=== PATIENT | female | born 1980 | race African-American/Black ===

== ENCOUNTER 2020-04-17 21:56 | Emergency (ER) | payer OTHER, SELFPAY ==
[2020-04-17 22:02] VITALS: BP 130/78; PULSE 97; RESP 20; TEMP 37.2; O2SAT 97
--- NOTE | 2020-04-17 22:26 | ED.HA ---
HPI - Headache General Chief Complaint: Headache <Kirk Grimm PA-C - Last Filed: 04/17/20 22:30> Stated Complaint: Migraine BANKS <Kirk Grimm PA-C - Last Filed: 04/17/20 22:30> Time Seen by Provider: 04/17/20 22:26 <Kirk Grimm PA-C - Last Filed: 04/17/20 22:30> Source: patient <Kirk Grimm PA-C - Last Filed: 04/17/20 22:30> Mode of arrival: ambulatory <Kirk Grimm PA-C - Last Filed: 04/17/20 22:30> Limitations: no limitations <Kirk Grimm PA-C - Last Filed: 04/17/20 22:30> History of Present Illness HPI Narrative: Patient is a 39-year-old female who presents with 3 days duration of frontal headache with history of migraine headaches with similar occurrences in the past with some associated nausea denies any injury trauma or recent illness has tried [id number] medications with minimal improvement on arrival patient resting comfortably in the room in no distress has not been seen for this complaint <Kirk Grimm PA-C - Last Filed: 04/17/20 22:30> Related Data Allergies/Adverse Reactions: Allergies Allergy/AdvReac Type Severity Reaction Status Date / Time No Known Allergies Allergy Verified 04/17/20 22:04 <Kirk Grimm PA-C - Last Filed: 04/17/20 22:30> Review of Systems Review of Systems: All systems reviewed & are unremarkable except as noted in HPI and below <Kirk Grimm PA-C - Last Filed: 04/17/20 22:30> PMFSH Past Medical History Medical History: Medical History (Updated 04/18/20 @ 00:00 by Mark Navas) Anemia <Kirk Grimm PA-C - Last Filed: 04/17/20 22:30> Social History Social History: Social History (Updated 04/17/20 @ 22:28 by Kirk Grimm PA-C) Smoking status: Never smoker <Kirk Grimm PA-C - Last Filed: 04/17/20 22:30> Exam Narrative: Exam Narrative: GENERAL: Well-appearing, well-nourished, and in no acute distress. HEAD: Normocephalic, atraumatic. EYES: PERRLA and EOMI. ENT: Nares clear, no rhinorrhea or epistaxis. Mucous membranes moist. CHEST: Clear to auscultation. No respiratory distress. No wheezes rales or rhonchi HEART: Regular rate and rhythm. No murmur heard. EXTREMITIES: Normal range of motion. No edema. SKIN: Warm, dry, no rash. NEURO: No focal deficits. Alert and oriented x3. Cranial nerves II through XII grossly intact. Normal speech and gait PSYCH: Normal mood and affect. <Kirk Grimm PA-C - Last Filed: 04/17/20 22:30> Course Course Emergency Course: Patient in the room in no distress aware of case findings treatment plan and diagnosis agreeing to follow-up as directed or to return if symptoms worsen or concern <Kirk Grimm PA-C - Last Filed: 04/17/20 22:30> Vital Signs Vital signs: Vital Signs Temperature 98.9 F 04/17/20 22:02 Pulse Rate 97 04/17/20 22:02 Respiratory Rate 20 04/17/20 22:02 Blood Pressure 130/78 04/17/20 22:02 Pulse Oximetry 97 04/17/20 22:02 Temperature 98.9 F 04/17/20 22:02 Pulse Rate 78 04/17/20 23:25 Respiratory Rate 15 04/17/20 23:25 Blood Pressure 132/78 04/17/20 23:25 Pulse Oximetry 98 04/17/20 23:25 <RADHA Montague Last Filed: 04/17/20 22:30> Vital Signs Temperature 98.9 F 04/17/20 22:02 Pulse Rate 97 04/17/20 22:02 Respiratory Rate 20 04/17/20 22:02 Blood Pressure 130/78 04/17/20 22:02 Pulse Oximetry 97 04/17/20 22:02 Temperature 98.9 F 04/17/20 22:02 Pulse Rate 78 04/17/20 23:25 Respiratory Rate 15 04/17/20 23:25 Blood Pressure 132/78 04/17/20 23:25 Pulse Oximetry 98 04/17/20 23:25 <Nidhi Mayes MD - Last Filed: 04/20/20 03:01> MDM - Headache MDM Narrative Medical decision making narrative: Patients headache was not sudden or maximal in onset. There are o focal neurological deficits on exam. Subarachnoid hemorrhage is felt to be unlikey at this time. There is no history
[2020-04-17] MEDS: METOCLOPRAMIDE HCL INJ 10 MG/2 ML VIAL IV PUSH (22:36)
[2020-04-17] MEDS: diphenhydrAMINE HCl INJ 50 MG/ML VIAL 25 MG IV PUSH (22:36)
[2020-04-17] MEDS: KETOROLAC 30 MG/ML VIAL (*BKC) IV PUSH (22:36)
[2020-04-17] MEDS: FAMOTIDINE 20 MG/2 ML VIAL IV PUSH (22:36)
[2020-04-17] MEDS: SODIUM CHLORIDE 0.9% IV 1,000 ML 999 ML IV CONT (22:42)
[2020-04-17 23:25] VITALS: BP 132/78; PULSE 78; RESP 15; O2SAT 98
== END 2020-04-17 23:25 | disposition home or self-care (01) ==
PROVIDERS: Emergency Provider Emergency Medicine
DX: R51 Headache (principal)
CPT/HCPCS: 96361; 96374; 96375; 99284; J1200; J1885; J2060; J2765; J7030

== ENCOUNTER 2020-07-10 11:40 | Outpatient (CLI) | payer OTHER, SELFPAY ==
[2020-07-10 12:10] LABS: Basophils Percent Auto 0.7 % (0.2-1.2); Eosinophils Percent Auto 0.7 % (0-4.4); Hematocrit 29.5 % (37.0-47.0); Hemoglobin 8.3 g/dL (12.0-15.0); Immature Granulocyte Absolute 0.01 K/mm3 (0.00-0.031); Immature Granulocyte Percent A 0.3 % (0-0.5); Lymphocytes Absolute Auto 1.34 K/mm3 (0.9-3.2); Lymphocytes Percent Auto 44.4 % (18.3-44.2); Mean Corpuscular HGB Conc 28.1 g/dl (32-36); Mean Corpuscular Hemoglobin 17.5 pg (26-34); Mean Corpuscular Volume 62.4 fl (80-100); Mean Platelet Volume 8.5 fl (7.4-10.4); Monocytes Absolute Auto 0.2 K/mm3 (0.1-0.6); Monocytes Percent Auto 6.3 % (2.6-8.5); Neutrophils Absolute Auto 1.4 K/mm3 (1.3-6.7); Neutrophils Percent Auto 47.6 % (45.5-73.1); Platelet Count Result 356 k/mm3 (150-375); Red Blood Count 4.73 M/mm3 (4.2-5.4); Red Cell Distribution Width 18.5 % (11.5-14.5)
[2020-07-10 12:34] LABS: Anisocytosis 1+ (NORMAL); Hypochromasia 1+ (NORMAL); Platelet Estimate Adequate (Adequate)
[2020-07-10 12:41] LABS: Iron 14 ug/dL (37-170)
[2020-07-10 12:51] LABS: Percent Iron Saturation 3 % (20-50)
[2020-07-10 13:26] LABS: Folic Acid 5.2 ng/mL (2.76->20)
== END 2020-07-10 11:41 | disposition home or self-care (01) ==
PROVIDERS: PCP Physician Assistant; Visit Provider Physician Assistant
DX: D64.9 Anemia, unspecified (principal)
CPT/HCPCS: 36415; 82607; 82746; 83540; 83550; 85025

== ENCOUNTER 2020-12-19 06:57 | Emergency (ER) | payer OTHER, SELFPAY ==
[2020-12-19 06:59] VITALS: BP 149/79; PULSE 87; RESP 16; TEMP 37.1; O2SAT 99
--- NOTE | 2020-12-19 07:34 | ED.HA ---
HPI - Headache General Chief Complaint: Headache Stated Complaint: headache Time Seen by Provider: 12/19/20 07:10 Source: patient Mode of arrival: ambulatory Limitations: no limitations History of Present Illness HPI Narrative: This is a 40 year old female who presents for evaluation of a headache. She describes a throbbing frontal headache that radiates to her neck. Her headache started on . She has been taking ibuprofen and she states it was giving her relief until this morning. Her last dose of ibuprofen was 10 hours ago. She reports associated nausea but denies visual changes, vomiting or fever. She has a history of headaches and she states this headache is similar to previous episodes. She reports having previous neuroimaging last year that was unremarkable. She was prescribed amitriptyline and another medication months ago but she stopped taking them due to side effects. MD elicited complaint: headache Pertinent past history: migraines Onset description: gradually Location: frontal and down into neck Severity: moderate Pain scale (0-10): 7 Quality & Timing: throbbing and similar to previous headaches Relieving factors: NSAIDs Related Data Allergies Allergy/AdvReac Type Severity Reaction Status Date / Time No Known Allergies Allergy Verified 12/19/20 07:01 Review of Systems Review of Systems: All systems reviewed & are unremarkable except as noted in HPI and below Constitutional: Constitutional: Denies chills and Denies fever(s) Eyes: Eyes: Denies change in vision and Denies photophobia ENT: Reports otalgia and Denies sore throat Cardiovascular: Cardiovascular: Denies chest pain Respiratory: Respiratory: Denies cough and Denies dyspnea Gastrointestinal: Gastrointestinal: Denies abdominal pain, Denies diarrhea, Reports nausea and Denies vomiting Neurologic: Reports dizziness, Reports headache(s) and Denies focal weakness PMFSH Past Medical History Medical History (Updated 12/19/20 @ 09:20 by Latasha Allen MD) Anemia Chronic headaches Surgical History Surgical History (Updated 12/19/20 @ 07:36 by Latasha Allen MD) H/O section Social History Social History (Updated 12/19/20 @ 07:36 by Latasha Allen MD) Smoking status: Never smoker Alcohol intake: current Alcohol use details: socially Exam Narrative: Exam Narrative: GENERAL: Well-appearing, well-nourished, and in no acute distress. HEAD: Normocephalic, atraumatic EYES: PERRLA and EOMI, conjunctiva clear without discharge EARS: TM's clear bilaterally without erythema or dullness NOSE: Nares clear, no rhinorrhea or epistaxis THROAT:Mucous membranes moist, Oropharynx normal without erythema, exudate, peritonsillar swelling or fluctuance NECK: Supple, without lymphadenopathy or mass RESPIRATORY: No respiratory distress, Airway patent, Respirations non-labored, Clear to auscultation without rales, rhonchi or wheeze HEART: Regular rate and rhythm. No murmur heard. Normal peripheral pulses. ABDOMEN: Soft, nontender, nondistended, normal active bowel sounds. No masses. No rebound or guarding, No organomegaly. EXTREMITIES: No edema, normal strength with full range of motion. SKIN: Warm, dry, normal color without rash NEURO: Alert and oriented x3. CN 2-12 grossly intact. No focal deficits. PSYCH: Normal mood and affect. Course Reevaluation(s) Reevaluation #1: Patent states she feels much better. Her headache is almost completely resolved 09/20. She states she is ready for discharge home. Denies any additional questions or concerns. Date: 12/19/20 Time: 09:18 Vital Signs Vital signs: Vital Signs Temperature 98.7 F 12/19/20 06:59 Pulse Rate 87 12/19/20 06:59 Respiratory Rate 16 12/19/20 06:59 Blood Pressure 149/79 H 12/19/20 06:59 Pulse Oximetry 99 12/19/20 06:59 Temperature 98.7 F 12/19/20 06:59 Pulse Rate 62 12/19/20 10:08 Respiratory Rate 20 12/10
[2020-12-19] MEDS: LACTATED RINGERS 1,000 ML 999 ML IV CONT ×2 (07:51→07:53)
[2020-12-19] MEDS: KETOROLAC 30 MG/ML VIAL (*BKC) IV PUSH (07:52)
[2020-12-19] MEDS: METOCLOPRAMIDE HCL INJ 10 MG/2 ML VIAL IV PUSH (07:53)
[2020-12-19] MEDS: diphenhydrAMINE HCl INJ 50 MG/ML VIAL 25 MG IV PUSH (07:53)
[2020-12-19 07:55] VITALS: BP 126/72; PULSE 60; RESP 20; O2SAT 99
[2020-12-19 10:08] VITALS: BP 124/68; PULSE 62; RESP 20; O2SAT 99
== END 2020-12-19 10:10 | disposition home or self-care (01) ==
PROVIDERS: Emergency Provider General Practice; PCP Physician Assistant
DX: R51.9 Headache, unspecified (principal); Z86.2 Personal history of diseases of the blood and blood-forming organs and certain disorders involving the immune mechanism
CPT/HCPCS: 81025; 96361; 96374; 96375; 99284; J1200; J1885; J2765; J7120

== ENCOUNTER 2020-12-20 13:02 | Emergency (ER) | payer OTHER, SELFPAY ==
[2020-12-20 13:04] VITALS: BP 148/76; PULSE 88; RESP 20; TEMP 36.6; O2SAT 99
[2020-12-20] MEDS: LACTATED RINGERS 1,000 ML 999 ML IV CONT (14:58)
[2020-12-20] MEDS: PROCHLORPERAZINE EDISYLATE 10 MG/2 ML VIAL IV PUSH (14:58)
[2020-12-20 16:08] VITALS: BP 125/85; PULSE 85
--- NOTE | 2020-12-20 16:13 | ED.HA ---
HPI - Headache General Chief Complaint: Headache Stated Complaint: headache Time Seen by Provider: 12/20/20 13:09 Source: patient Mode of arrival: ambulatory Limitations: no limitations History of Present Illness HPI Narrative: 40-year-old female Presents with a complaint of headache Patient notes a history of headaches which she refers to as migraines for 10 or 15 years, does not sound like they have ever been formally diagnosed as migraine per se however she is at least been prescribed amitriptyline to try and prophylax them in the past, but she does not take it due to side effects Anyhow she gets headaches which sometimes come frequently and sometimes are by many months and are normally frontal and bilateral but sometimes unilateral, sometimes she has a sense like she might get a headache but it is very nonspecific, sometimes she may get a little bit of a visual halo but that is all Current headache started several days ago, she actually got treated with Reglan a day ago which improved things but then it came back She denies fever or sinus symptoms she has no stiff neck she has no neurologic focal symptom; Related Data Allergies Allergy/AdvReac Type Severity Reaction Status Date / Time No Known Allergies Allergy Verified 12/19/20 07:01 Review of Systems Review of Systems: All systems reviewed & are unremarkable except as noted in HPI and below Constitutional: Constitutional: Reports no additional constitutional complaints, Denies chills, Denies fever(s) and Denies headache(s) Eyes: Eyes: Reports no additional eye complaints and Denies change in vision ENT: Denies headache(s) and Denies sore throat Cardiovascular: Cardiovascular: Denies chest pain and Denies dyspnea Respiratory: Respiratory: Denies cough and Denies dyspnea Gastrointestinal: Gastrointestinal: Denies abdominal pain, Denies diarrhea and Denies vomiting Genitourinary: Genitourinary: Denies urinary frequency and Denies dysuria Musculoskeletal: Musculoskeletal: Denies deformity, Denies arthralgias, Denies joint swelling and Denies numbness Integumentary/Breasts: Skin/Breast: Denies rash and Denies wounds Neurologic: Denies headache(s), Denies focal weakness and Denies numbness Psychiatric: Psychiatric: Reports no additional psychiatric complaints Endocrine: Endocrine: Reports no additional endocrine complaints Hematologic/Lymphatic: Hematologic/Lymphatic: Reports no additional hematologic/lymphatic complaints Allergic/Immunologic: Allergic/Immunologic: Reports no additional allergic/immunologic complaints [facility] Past Medical History Medical History (Updated 12/20/20 @ 16:49 by Rolo Granger MD) Anemia Chronic headaches Surgical History Surgical History (Updated 12/19/20 @ 07:36 by Latasha Allen MD) H/O section Social History Social History (Updated 12/19/20 @ 07:36 by Latasha Allen MD) Smoking status: Never smoker Alcohol intake: current Gender identity (if verbalized by the patient): Female Exam Const: General: cooperative, no acute distress and alert Nutritional Appearance: obese Orientation/consciousness: patient oriented x3 (alert) HENMT: Head: normal to inspection, normocephalic and atraumatic Ears: external ears normal General nose exam: no epistaxis Eyes: Conjunctivae: conjunctivae normal EOM: EOMs intact bilaterally Other: Fundi look sharp but it is difficult and limited exam Neck: Neck: normal visual inspection, supple and no JVD Resp: Effort & Inspection: normal respiratory effort Auscultation: clear to auscultation bilaterally and other (BS =) Cardio: Rate: regular rate Rhythm: regular rhythm Skin: General skin exam: no rashes or lesions noted Neuro: General: patient oriented x3 (alert), moves all extremities, no meningeal signs and CN's II-XI intact bilaterally Speech: normal speech Extrem: General: normal to inspection Course Vital Signs Vital signs: Vital
== END 2020-12-20 17:08 | disposition home or self-care (01) ==
PROVIDERS: Emergency Provider Emergency Medicine; PCP Physician Assistant
DX: R51.9 Headache, unspecified (principal); Z86.2 Personal history of diseases of the blood and blood-forming organs and certain disorders involving the immune mechanism
CPT/HCPCS: 96361; 96374; 96375; 99284; J0780; J1100; J7120

== ENCOUNTER 2023-10-03 23:56 | Observation (INO) | payer BC, SELFPAY ==
--- NOTE | ~2023-10-03 | XR_ITS ---
Clinical Indication: Chest pain PA and lateral views of the chest: Comparison: 06/21/2019 Findings: The lungs are clear, without evidence of focal consolidation or pleural effusion. Cardiome diastinal silhouette is within normal limits. Bones and soft tissues are unremarkable. Impression: Normal chest. Reviewed, dictated and finalized at location . ORT SPECIALIST Impression: Normal chest.
[2023-10-04] VITALS (72 sets, daily range): BP systolic 109–136; BP diastolic 52–91; PULSE 59–105; RESP 15–27; TEMP 36.6–37.1; O2SAT 93–100; BMI 40.4
--- NOTE | 2023-10-04 | ECG_ITS ---
Measurements Intervals [place] Rate: 86 P: 52 PA: 148 QRS: 24 QRSD: 97 T: 29 QT: 393 QTc: 473 Interpretive Statements SINUS RHYTHM NORMAL ECG NO PREVIOUS ECG AVAILABLE FOR COMPARISON Electronically Signed On 10-04-2023 6:48:09 MEDICAL VOUCHER CLERK by Jaiden Oneill D.O.
[2023-10-04 00:37] LABS: Basophils Percent Auto 0.8 % (0.2-1.2); Eosinophils Percent Auto 0.8 % (0-4.4); Hematocrit 23.1 % (37.0-47.0); Immature Granulocyte Absolute 0.01 K/mm3 (0.00-0.031); Immature Granulocyte Percent A 0.2 % (0-0.5); Lymphocytes Absolute Auto 1.53 K/mm3 (0.9-3.2); Lymphocytes Percent Auto 30.2 % (18.3-44.2); Mean Corpuscular HGB Conc 25.5 g/dl (32-36); Mean Corpuscular Hemoglobin 14.5 pg (26-34); Mean Corpuscular Volume 56.9 fl (80-100); Mean Platelet Volume 8.6 fl (7.4-10.4); Monocytes Absolute Auto 0.3 K/mm3 (0.1-0.6); Monocytes Percent Auto 6.7 % (2.6-8.5); Neutrophils Absolute Auto 3.1 K/mm3 (1.3-6.7); Neutrophils Percent Auto 61.3 % (45.5-73.1); Nucleated Red Blood Cells Perc 0.4 % (0.0-0.2); Platelet Count Result 403 k/mm3 (150-375); Red Blood Count 4.06 M/mm3 (4.2-5.4); Red Cell Distribution Width 20.6 % (11.5-14.5); White Blood Count 5.1 K/mm3 (4.5-10.0)
[2023-10-04 00:40] LABS: Partial Thromboplastin Time 29.6 SECONDS (22.3-36.8); Prothrombin Time 13.9 Seconds (11.1-14.7)
[2023-10-04 00:41] LABS: Alanine Aminotransferase 18 U/L (6-35); Alkaline Phosphatase 100 U/L (38-126); Anion Gap 8 mmol/L (8-16); Aspartate Amino Transferase 28 U/L (14-36); Bilirubin,Total 0.5 mg/dL (0.2-1.3); Blood Urea Nitrogen 8 mg/dL (7-17); Calcium 8.4 mg/dL (8.4-10.2); Carbon Dioxide 26 mmol/L (22-30); Chloride 105 mmol/L (98-107); Estimated CRCL calculation 134 ml/min; Estimated Glomerular Filt Rate > 60; Glucose 100 mg/dL (65-110); Lipase 63 U/L (23-300); Potassium 2.9 mmol/L (3.4-5.0); Sodium 139 mmol/L (137-145)
[2023-10-04 00:52] LABS: Troponin I < 0.012 ng/mL (0.000-0.034)
[2023-10-04 00:54] LABS: Hemoglobin 5.9 g/dL (12.0-15.0)
[2023-10-04 00:56] LABS: Anisocytosis 1+ (NORMAL); Hypochromasia 1+ (NORMAL); Schistocytes None Seen (NORMAL)
--- NOTE | 2023-10-04 03:21 | ED.GENADULT ---
HPI - General Adult General Chief complaint: Chest Pain Stated complaint: cp and sob Time Seen by Provider: 10/04/23 01:30 History of Present Illness HPI narrative: The patient is a 42-year-old female who presents emerged from with chief complaint of chest discomfort. Patient reports that since Monday she has been having some shortness of breath worse with exertion the patient reports that she had a little uncomfortable feeling in her chest with all this the patient denies diaphoresis reports that she is currently on her period and having moderate to heavy vaginal bleeding. The patient states that she has had issues with heavy periods throughout her life and actually is required transfusions with the last being several years ago patient reports she is followed by an OBGYN for her heavy periods. The patient reports that when she is resting she does not have any symptoms. Related Data Allergies Allergy/AdvReac Type Severity Reaction Status Date / Time No Known Allergies Allergy Verified 10/04/23 00:10 Review of Systems Review of Systems: A 10 system review of systems was completed on the patient and is negative except for what is stated in the HPI. Nursing and ancillary documentation was reviewed. PMFSH Past Medical History Medical History Anemia Chronic headaches Surgical History Surgical History H/O section Social History Social History Smoking status: Never smoker Alcohol intake: current Alcohol use details: socially Gender identity (if verbalized by the patient): Female Exam Narrative: GENERAL: Well-appearing, well-nourished, and in no acute distress. HEAD: Normocephalic, atraumatic. EYES: PERRLA and EOMI. ENT: Nares clear, no rhinorrhea or epistaxis. Mucous membranes moist. NECK: Supple. CHEST: Clear to auscultation. No respiratory distress. HEART: Regular rate and rhythm. No murmur heard. Normal peripheral pulses. ABDOMEN: Soft, nontender, nondistended, normal active bowel sounds. EXTREMITIES: Normal range of motion. No edema. SKIN: Warm, dry, no rash. NEURO: No focal deficits. Alert and oriented x3. PSYCH: Normal mood and affect. Course Vital Signs Vital signs: Vital Signs Temperature 36.6 C 10/04/23 00:07 Pulse Rate 105 H 10/04/23 00:07 Respiratory Rate 18 10/04/23 00:07 Blood Pressure 128/56 L 10/04/23 00:07 Pulse Oximetry 98 10/04/23 00:07 Oxygen Delivery Room Air 10/04/23 00:07 Temperature 36.6 C 10/04/23 00:07 Pulse Rate 105 H 10/04/23 00:07 Respiratory Rate 18 10/04/23 00:07 Blood Pressure 128/56 L 10/04/23 00:07 Pulse Oximetry 98 10/04/23 00:07 Oxygen Delivery Room Air 10/04/23 01:34 Medical Decision Making MDM Narrative Medical decision making narrative: Differential diagnosis includes symptomatic anemia, ACS, electrolyte abnormality Patient's laboratory studies showed a hemoglobin of 5.9. The patient does have prior history of anemia secondary to menorrhagia. The patient's potassium was also slightly low at 2.9. The patient will be given 40 mEq of p.o. potassium patient also was ordered for 2 units of packed red blood cells. The patient's troponins have been negative in the emergency department the patient will be admitted to the hospitalist service Vital Signs Vital Signs: Vital Signs Temperature 36.6 C 10/04/23 00:07 Pulse Rate 105 H 10/04/23 00:07 Respiratory Rate 18 10/04/23 00:07 Blood Pressure 128/56 L 10/04/23 00:07 Pulse Oximetry 98 10/04/23 00:07 Oxygen Delivery Room Air 10/04/23 00:07 Temperature 36.6 C 10/04/23 00:07 Pulse Rate 105 H 10/04/23 00:07 Respiratory Rate 18 10/04/23 00:07 Blood Pressure 128/56 L 10/04/23 00:07 Pulse Oximetry 98 10/04/23 00:07 Oxygen Delivery Ro
[2023-10-04 04:14] LABS: Iron 21 ug/dL (37-170)
[2023-10-04 04:19] LABS: Troponin I < 0.012 ng/mL (0.000-0.034)
[2023-10-04 04:33] LABS: Percent Iron Saturation 5 % (20-50)
[2023-10-04] MEDS: SODIUM CHLORIDE 0.9% IV 250 ML 30 ML IV CONT (05:00)
[2023-10-04] MEDS: TUBING, BLOOD PLUM PUMP TUBING 1 EACH XX (05:00)
[2023-10-04 05:01] LABS: Ferritin 4.72 ng/mL (6.24-137)
--- NOTE | 2023-10-04 07:22 | PC.NURSE ---
Report to ANDREW Mosqueda. First unit of blood finished.
[2023-10-04 10:07] LABS: Hematocrit 29.1 % (37.0-47.0)
[2023-10-04 16:09] LABS: Hematocrit 30.4 % (37.0-47.0); Hemoglobin 8.2 g/dL (12.0-15.0)
--- NOTE | 2023-10-04 16:17 | PC.NURSE ---
Patient noted to have ordered delivery of food from a local restaurant that was not within the heart healthy diet order in her record. She was given the food but was advised that she should follow the heart healthy diet that the doctor ordered. She stated that she is not going on a heart healthy diet.
--- NOTE | 2023-10-04 16:30 | ADMGEN ---
This patient, Sky Gandhi, was admitted to Virtual Bed 3rd Floor-2. Patient/family oriented to hospital policies and general routines including ID bracelet, bed and alarms, visiting hours, pain management, procedures, bathroom and other care routines, personal items, smoking policy, room service/diet, and visiting hours. Information on how to activate the Rapid Response Team has been discussed. Patient/Family are encouraged to report perceived risks to care and to ask questions if they do not understand what they are told or what they should do.
--- NOTE | 2023-10-04 17:22 | PM.SD2 ---
Same Day Admit/Disch: HPI History of Present Illness Chief complaint: Symptomatic Anemia, Hyperkalemia Narrative: 42-year-old female who presents emerged from with chief complaint of chest discomfort.? Patient reports that since Monday she has been having some shortness of breath worse with exertion the patient reports that she had a little uncomfortable feeling in her chest with all this the patient denies diaphoresis reports that she is currently on her period and having moderate to heavy vaginal bleeding. Pt had blood transfusion in ED and states her vaginal bleeding has stopped. Hb is much improved. Pt potassium is low despite oral potassium, potassium rider was ordered, unfortunately will not complete until 11 pm. Pt will stay overnight although initial plan was to dc the same day. Pt has a follow ob/ retail salesworker apt in [facility] Past Medical History Medical History Anemia Chronic headaches Surgical History Surgical History H/O section Family History Family History Grandparent Diabetes mellitus Mother Diabetes mellitus Hypertension Father Hypertension Social History Social History Smoking status: Never smoker Second hand tobacco smoke exposure: No Alcohol intake: current Drinks per week: 4 Alcohol use details: socially Substance use: never Do You Feel Safe in your Home?: Yes Lack of Transportation: No Lack of Food: Never True Current Housing: I Have Housing Concerned About Future Housing: No Difficulty Paying Gas/Electric Bills: No Difficulty Paying for Meds: No Currently Unemployed: No Education: High School Diploma/GED Difficulty w/ Childcare or Family Care: No Gender identity (if verbalized by the patient): Female Spiritual care concerns: No Same Day Admit/Disch: Med Pre-admit Medications Home Medications Medication Instructions Recorded Confirmed Type ferrous sulfate 325 mg (65 mg 325 mg PO BID #60 tabs 10/04/23 Rx iron) tablet potassium chloride 10 mEq 10 meq PO DAILY #10 caps 10/04/23 Rx capsule,extended release Review of Systems Review of Systems Vaginal bleeding resolved now Exam Narrative: GENERAL: Well-appearing, well-nourished, and in no acute distress. HEAD: Normocephalic, atraumatic. EYES: PERRLA and EOMI. ENT: Nares clear, no rhinorrhea or epistaxis. Mucous membranes moist. NECK: Supple. CHEST: Clear to auscultation. No respiratory distress. HEART: Regular rate and rhythm. No murmur heard. Normal peripheral pulses. ABDOMEN: Soft, nontender, nondistended, normal active bowel sounds. EXTREMITIES: Normal range of motion. No edema. SKIN: Warm, dry, no rash. NEURO: No focal deficits. Alert and oriented x3. PSYCH: Normal mood and affect. DS: Data Data Completed and Pending Labs on day of discharge: Labs from last 24 hours 10/04/23 10/04/23 10/04/23 16:04 10:01 03:48 WBC RBC Hgb 8.2 L 8.0 L Hct 30.4 L 29.1 L MCV MCH MCHC RDW Plt Count MPV Immature Gran % (Auto) Neut % (Auto) Lymph % (Auto) [place] % (Auto) Eos % (Auto) Baso % (Auto) Lymph # (Auto) [place] # (Auto) Eos # (Auto) Baso # (Auto) Abs Immat Gran (auto) Absolute Neuts (auto) Absolute Nucleated RBC Nucleated RBC % Platelet Estimate Hypochromasia Anisocytosis Schistocytes PT INR APTT Sodium Potassium Chloride Carbon Dioxide Anion Gap BUN Creatinine Estim Creat Clear Calc Estimated GFR Glucose Calcium Iron 21 L TIBC 422 % Saturation 5 L Ferritin 4.72 L Total Bilirubin AST ALT Alkaline Phosphatase Troponin I < 0.012 Total Protein Albumin Lipase
[2023-10-04] MEDS: POTASSIUM CHLORIDE 20 MEQ ER TABLET 40 MEQ PO (17:33)
[2023-10-04 19:07] LABS: Potassium 2.7 mmol/L (3.4-5.0)
[2023-10-04] MEDS: POTASSIUM CHLORIDE INJ 40 MEQ in SODIUM CHLORIDE 0.9% IV 500 ML 130 MEQ IVPB (20:27)
[2023-10-04] MEDS: POTASSIUM CHLORIDE 20 MEQ PACKET (FOR LIQUID) PO (20:28)
[2023-10-04 22:07] LABS: Hematocrit 27.9 % (37.0-47.0); Hemoglobin 7.7 g/dL (12.0-15.0)
[2023-10-05] VITALS: PULSE 89
[2023-10-05 04:00] VITALS: PULSE 79
[2023-10-05 05:43] VITALS: BP 106/72; PULSE 71; RESP 18; TEMP 36.4; O2SAT 99
[2023-10-05 06:09] LABS: Anion Gap 7 mmol/L (8-16); Blood Urea Nitrogen 7 mg/dL (7-17); Carbon Dioxide 25 mmol/L (22-30); Chloride 109 mmol/L (98-107); Estimated CRCL calculation 131 ml/min; Estimated Glomerular Filt Rate > 60; Glucose 101 mg/dL (65-110); Potassium 3.5 mmol/L (3.4-5.0); Sodium 141 mmol/L (137-145)
[2023-10-05 08:00] VITALS: PULSE 76
[2023-10-05] MEDS: IRON SUCROSE COMPLEX 300 MG in SODIUM CHLORIDE 0.9% IV 250 ML 176.67 MG IVPB (10:17)
--- NOTE | 2023-10-05 12:07 | PM.DS ---
DS: Admitting Diagnosis Discharge Date 10/05/2023 Admitting Diagnosis Symptomatic anaemia and Hypokalemia DS: Discharge Diagnosis Discharge Diagnosis Plan Follow up OB/ BOOK EDITOR DS: Summary Hospital Course Hospital Course: 42-year-old female who presents emerged from with chief complaint of chest discomfort.? Patient reports that since Monday she has been having some shortness of breath worse with exertion the patient reports that she had a little uncomfortable feeling in her chest with all this the patient denies diaphoresis reports that she is currently on her period and having moderate to heavy vaginal bleeding.? The patient states that she has had issues with heavy periods throughout her life and actually is required transfusions with the last being several years ago patient reports she is followed by an OBGYN for her heavy periods.? Pt had blood transfusion and venofer infusion on the medical floor and was ok to dc. Pt was Dc with ferrous sulfate. Potassium was low pt was dc with potassium supplements pt had k rider in hospital prior to DC. Time Spent with Patient Time attestation: Total time spent providing and/or coordinating discharge services:40 minutes on day of DC Exam Narrative: GENERAL: Well-appearing, well-nourished, and in no acute distress. HEAD: Normocephalic, atraumatic. EYES: PERRLA and EOMI. ENT: Nares clear, no rhinorrhea or epistaxis. Mucous membranes moist. NECK: Supple. CHEST: Clear to auscultation. No respiratory distress. HEART: Regular rate and rhythm. No murmur heard. Normal peripheral pulses. ABDOMEN: Soft, nontender, nondistended, normal active bowel sounds. EXTREMITIES: Normal range of motion. No edema. SKIN: Warm, dry, no rash. NEURO: No focal deficits. Alert and oriented x3. PSYCH: Normal mood and affect. DS: Data Data Completed and Pending Labs on day of discharge: Labs from last 24 hours 10/05/23 10/04/23 10/04/23 05:13 22:01 18:43 Hgb 7.7 L Hct 27.9 L Sodium 141 Potassium 3.5 2.7 L* Chloride 109 H Carbon Dioxide 25 Anion Gap 7 L BUN 7 Creatinine 0.60 L Estim Creat Clear Calc 131 Estimated GFR > 60 Glucose 101 Calcium 8.0 L 10/04/23 16:04 Hgb 8.2 L Hct 30.4 L Sodium Potassium Chloride Carbon Dioxide Anion Gap BUN Creatinine Estim Creat Clear Calc Estimated GFR Glucose Calcium Discharge Plan Discharge Attending physician on discharge: Lizett Fraser Discharging Clinician: Lizett Fraser Anticipated Discharge Date/Time: 10/05/23 13:00 Patient Disposition: Home, Self-Care Activity: as tolerated Diet: as tolerated Discharge Instructions: follow up with deputy director of finance for heavy periods pt following with deputy director of finance in [facility] Patient Instructions: Antibiotic Form, Hypokalemia (DC), Anemia (DC) Stand Alone Forms: General Discharge Information Follow-up/Referrals: Randolph,KIMI Kemp [Primary Care Provider] - Discharge Medications: New ferrous sulfate 325 mg (65 mg iron) tablet 325 mg PO BID Qty: 60 0RF potassium chloride 10 mEq capsule, extended release 10 meq PO DAILY Qty: 10 0RF Date of admission: 10/04/23 03:50 Primary Care Provider: Randolph*Carey Alexis Admitting Provider: Lena Israel Attending physician on admission: Lena Israel Condition: Stable
--- NOTE | 2023-10-05 13:39 | PCCCNOTE ---
On 10/05/23, the student, [Shilpa Go], provided care and completed [facility] documentation on this patient. I have reviewed the student's documentation and agree with the findings.
== END 2023-10-05 12:16 | disposition home or self-care (01) ==
LOC: ANHED 10-04 03:58 → ANH3MEDSUR 10-04 04:49 → ANH2MED 10-04 17:35
PROVIDERS: Family Medicine; Physician Assistant; Admitting Provider Internal Medicine; Emergency Provider Emergency Medicine; PCP Physician Assistant; Visit Provider Internal Medicine
DX: D64.9 Anemia, unspecified (principal); E87.6 Hypokalemia; N92.0 Excessive and frequent menstruation with regular cycle
CPT/HCPCS: 36415; 36430; 71046; 80048; 80053; 82728; 83540; 83550; 83690; 84132; 84484; 85014; 85018; 85025; 85610; 85730; 86850; 86900; 86901; 86920; 93005; 96361; 96365; 96366; 96374; 99285; A9270; G0378; G0379; J1756; J3480; J7040; J7050; P9016

== ENCOUNTER 2025-03-29 13:42 | Emergency (ER) | payer OTHER, SELFPAY ==
--- NOTE | ~2025-03-29 | XR_ITS ---
Clinical Indication: Cough, shortness of breath PA and lateral views of the chest: Comparison: 10/04/2023 Findings: The lungs are clear, without evidence of focal consolidation or pleural effusion. Cardiome diastinal silhouette is within normal limits. Bones and soft tissues are unremarkable. Impression: Normal chest. Reviewed, dictated and finalized at location . Impression: Normal chest.
--- OUTSIDE RECORDS SUMMARY | 2025-03-29 13:44 | XMS_ITS | Clinical Summary ---
Author Organization [facility] Address [address] [place] [address] Care Team Providers Care Supervisor Green End Department Name Role Phone Unavailable Primary Care Provider Unavailabl e Source Comments [facility],non-owned Affiliates and Associated Physician Practices is amultiple site organization consisting of ambulatory clinics and hospital sitesin [place], [place], [place] and [place]. This disclosure is being madepursuant to the Care Everywhere program and may not contain all information available regarding this patient. Last updated 18.[facility] Allergies No known active allergies Immunizations Immunization Administration Dates Next Due TD (ADULT), 5 LF TETANUS TOXOID, ADSORBED, PF Social History Tobacco Use Types Packs/Day Years Used Date Smoking Tobacco: Never Assessed Comments Unknown Sex and Gender Information Value Date Recorded Sex Assigned at Not on file Legal Sex Female 11:53 AM CDT Gender Identity Not on file Sexual Orientation Not on file Plan of Treatment Health Maintenance Due Date Last Done Comments COLOGUARD (AGES 45-75) - COL ON CA SCREENING 1979 COLON MONITORING 1979 COLONOSCOPY - COLON CA SCREENING 1979 CT COLONOGRAPHY - COLON CA SCREENING 1979 Colorectal Cancer Screening 1979 FIT - COLON CA SCREENING 1979 FLEX SIG - COLON CA SCREENING 1979 LIPID TESTING 1979 MAMMOGRAM 1979 HIV SCREENING 1994 HEPATITIS C SCREENING 11/03/1997 HEPATITIS B VACCINE (1 of 3 - 19+ 3-dose series) 1998 HPV VACCINE (1 - 3-dose SCDM series) 2006 COVID-19 VACCINE (2023-2 5 season) 2024 DEPRESSION SCREENING 09/11/2024 INFLUENZA VACCINE (#1) 2025 DTAP/TDAP/TD VACCINES (2 - T d or Tdap) 04/08/2029 04/08/2019 ZOSTER VACCINE (1 of 2) 2029 HIB VACCINE Aged Out No longer eligi ble based on patient's age to complete this topic MENINGOCOCCAL (Group B) VACC INE SHARED DECISION-MAKING Aged Out No longer eligibl e based on patient's age to complete this topic MENINGOCOCCAL GROUPS A/C/Y/W VACCINE Aged Out No longer eligible b ased on patient's age to complete this topic PNEUMOCOCCAL VACCINE Aged Out No long er eligible based on patient's age to complete this topic
--- OUTSIDE RECORDS SUMMARY | 2025-03-29 13:44 | XMS_ITS | Clinical Summary ---
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 Gender Identity Not on file Sexual Orientation Not on file Plan of Treatment Health Maintenance Due Date Last Done Comments Hepatitis C Virus (HCV) Screening 1979 TdaP Immunization 1979 Hepatitis B Immunization (1 of 3 - 19+ 3-dose series) 1998 Pap Smear 2000 Cervical Cancer Screening (CCS) 2009 HPV/Cotest 2009 Discussion re Starting/Frequ ency of Mammograms 2019 Influenza Immunization (#1) 2024 SARS-COV-2 Immunization ( season) 2024 Respiratory Syncytial Virus (RSV) Immunization (Adult) (1 - 1-dose 75+ series) 2054 Meningococcal Immunization (ACWY) Aged Out No longer eligible based on patient's age to complete this topic Pneumococcal Immunization Combined Aged Out No longer eligible based on patient's age to complete this topic Rotavirus Immunization Aged Out No lo nger eligible based on patient's age to complete this topic Insurance [employer] on file
[2025-03-29 14:17] VITALS: BP 101/57; PULSE 112; RESP 20; TEMP 38.9; O2SAT 100
--- NOTE | 2025-03-29 15:14 | ED_ITS ---
HPI - URI/Sore Throat General Chief Complaint: Upper Respiratory Infection Stated Complaint: body aches, cough/congestion Time Seen by Provider: 03/29/25 15:07 Source: patient and RN notes reviewed Mode of arrival: ambulatory Limitations: no limitations History of Present Illness MD elicited complaint: fever, cough, sore throat, rhinorrhea and nasal congestion Onset (ago): day(s) (4 days) Consistency: constant Severity: moderate Description of mucous: watery, yellow and green Able to tolerate fluids by mouth: Yes (not drinking as much as I should) Exacerbating factors: nothing Relieving factors: NSAID and OTC cold medicine Context: other (works at a [employer], 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) Associated symptoms: fever, chills, myalgias, diaphoresis, headache, rhinorrhea, nasal congestion, sore throat, cough, chest pain (w/ cough), shortness of breath and nausea Treatments prior to arrival: ibuprofen, cold medicine and other (Seen at Monday, dx w/ UTI and dehydration, and treated w/ abx) Related Data Allergies Allergy/AdvReac Type Severity Reaction Status Date / Time No Known Allergies Allergy Verified 10/04/23 12:31 Review of Systems 2 Review of Systems: All systems reviewed & are unremarkable except as noted in HPI and below PMFSH Past Medical History Medical History Chronic headaches Anemia Surgical History Surgical History H/O section Family History Family History Grandparent Diabetes mellitus Mother Diabetes mellitus Hypertension Father Hypertension Social History Social History Smoking status: Never smoker Second hand tobacco smoke exposure: No Alcohol intake: current Drinks per week: 4 Alcohol use details: socially Substance use: never Do You Feel Safe in your Home?: Yes Lack of Transportation: No Lack of Food: Never True Current Housing: I Have Housing Concerned About Future Housing: No Difficulty Paying Gas/Electric Bills: No Difficulty Paying for Meds: No Currently Unemployed: No Education: High School Diploma/GED Difficulty w/ Childcare or Family Care: No Gender identity (if verbalized by the patient): Female Spiritual care concerns: No Exam 2 Const: General: ill appearing Nutritional Appearance: obese O rientation/consciousness: patient oriented x3 Limitations: no limitations HENMT: Head: normal to inspection Ears: external ears normal F roshni/Nose/Sinus: Nasal discharge present Face and sinus: sinuses nontender Mouth: Yes dry mucous membranes Teeth and gingiva: dentition normal T hroat: posterior oropharynx normal Eyes: Conjunctivae: conjunctivae normal Pupils: Equal, round and reactive pupils present EOM: EOMs intact bilaterally Direct Ophthalmoscopy: no photophobia Neck: Neck: normal visual inspection Chest: Chest palpation & inspection: normal inspection of the chest Resp: Effort & Inspection: normal respiratory effort Auscultation: clear to auscultation bilaterally Cardio: Rate: regular rate Rhythm: regular rhythm GI: GI Palp: Yes Soft to palpation Auscultation: normal bowel sounds : General: Yes bladder normal to palpation and Yes no CVA tenderness Back/Spine/Pelvis: Back: no CVA tenderness Skin: General skin exam: normal color Rashes: no rashes Wounds: no wounds Neuro: General: patient oriented x3 and moves all extremities Speech: n ormal speech Gait exam (Neuro): Normal gait present Extrem: General: normal to inspection Psych: Mental Status: mental status grossly normal Affect: normal affect Course Vital Signs Vital signs: Vital Signs Temperature 38.9 C H 03/29/25 14:17 Pulse Rate 112 H 03/29/25 14:17 Respiratory Rate 20 03/29/25 14:17 Blood Pressure 101/57 L 03/29/25 14:17 Pulse Oximetry 100 03/29/25 14:17 Temperature 36.9 C 03/29/25 15:18 Pulse Rate 91 03/29/25 16:46 Respiratory Rate 18 03/29/25 16:46 Blood Pressure 108/62 03/29/25 16:46 Pulse Oximetry 99 03/29/25 16:46 Oxygen Delivery Room Air 03/29/25 15:18 MDM - URI/Sore Throat MDM Narrative Medical decision making narrative: Chest x-ray normal per radiology read. CBC shows chronic anemia, patient being treated for currently. CMP shows dehydration. Patient given L of fluid bolus in the department. Patient to be released with note to stay home. Differential Diagnosis Differential diagnosis: Likely upper respiratory infection, viral infection and bronchitis Medical Records Attestation: I reviewed the patient's medical records. Lab Data Attestation: I reviewed the patient's lab results. 03/29/25 15:48 03/29/25 15:48 Labs: Lab Results 03/29/25 03/29/25 Range/Units 15:47 15:48 WBC 9.8 (4.5-10.0) K/mm3 RBC 4.89 (4.2-5.4) M/mm3 Hgb 11.5 L D (12.0-15.0) g/dL Hct 35.9 L (37.0-47.0) % MCV 73.4 L (80-100) fl MCH 23.5 L (26-34) pg MCHC 32.0 (32-36) g/dl RDW 20.0 H (11.5-14.5) % Plt Count 284 (150-375) k/mm3 MPV 9.4 (7.4-10.4) fl Immature Gran % (Auto) 0.3 (0-0.5) % Neut % (Auto) 71.9 (45.5-73.1) % Lymph % (Auto) 8.8 L (18.3-44.2) % [place] % (Auto) 13.2 H (2.6-8.5) % Eos % (Auto) 5.4 H (0-4.4) % Baso % (Auto) 0.4 (0.2-1.2) % Lymph # (Auto) 0.86 L (0.9-3.2) K/mm3 [place] # (Auto) 1.3 H (0.1-0.6) K/mm3 Eos # (Auto) 0.5 H (0-0.3) K/mm3 Baso # (Auto) 0.0 (0.0-0.1) K/mm3 Abs Immat Gran (auto) 0.03 (0.00-0.031) K/mm3 Absolute Neuts (auto) 7.0 H (1.3-6.7) K/mm3 Absolute Nucleated RBC 0.000 (0.0-0.012) K/mm3 Band Neutrophils % Not Reportable Nucleated RBC % 0.0 (0.0-0.2) % Platelet Estimate Adequate (Adequate) Microcytosis 1+ (NORMAL) Ovalocytes 1+ Schistocytes None seen Sodium 135 L (137-145) mmol/L Potassium 3.3 L (3.4-5.0) mmol/L Chloride 102 (98-107) mmol/L Carbon Dioxide 20 L (22-30) mmol/L Anion Gap 13 H (4-12) mmol/L BUN 11 (7-17) mg/dL Creatinine 1.05 H (0.7-1.0) mg/dL Estim Creat Clear Calc 75 ml/min Estimated GFR 57 L (59 - ) Glucose 159 H (65-110) mg/dL Calcium 8.7 (8.4-10.2) mg/dL Total Bilirubin 1.8 H (0.2-1.3) mg/dL AST 68 H (14-36) U/L ALT 78 H (6-35) U/L Alkaline Phosphatase 134 H (38-126) U/L Total Protein 8.3 H (6.3-8.2) g/dL Albumin 3.9 (3.5-5.1) g/dL Serum HCG, Qual Negative Imaging Data Radiologist's impression: ITS Impressions Chest X-Ray 03/29/25 15:43 Impression: Normal chest. Discharge Plan Discharge Clinical Impression: Upper respiratory infection Qualifiers: URI type: unspecified URI Qualified Code(s): J06.9 - Acute upper respiratory infection, unspecified Patient Disposition: Home Condition: Stable Instructions: Antibiotic Form, Upper Respiratory Infection (ED) Additional Instructions: Zofran for nausea, Tessalon Perles for cough. [id number] Motrin, Tylenol, cold/flu medicine can be taken. Drink plenty of water. Recommend brat diet and advance diet as tolerated. Please wash your hands, cover your cough. Follow-up with primary care as scheduled. Return to ED if worsening of symptoms. Patient Language: Telugu Prescriptions: New ondansetron 4 mg tablet,disintegrating 4 mg PO Q8H PRN (Reason: nausea and vomiting) Qty: 30 0RF benzonatate 100 mg capsule 100 mg PO BID PRN (Reason: cough) Qty: 20 0RF No Action ferrous sulfate 325 mg (65 mg iron) tablet 325 mg PO BID Qty: 60 0RF potassium chloride 10 mEq capsule, extended release 10 meq PO DAILY Qty: 10 0RF Follow-up/Referrals: Jodie,KIMI Kemp [Primary Care Provider] - Stand Alone Forms: Work/School Release IP
[2025-03-29 15:18] VITALS: BP 128/92; PULSE 107; RESP 20; TEMP 36.9; O2SAT 99
--- OUTSIDE RECORDS SUMMARY | 2025-03-29 15:24 | XMS_ITS | Clinical Summary ---
Author Organization [facility] Address [address] [place] [address] Care Team Providers Care Cane Flume Chute Operator Name Role Phone Unavailable Primary Care Provider Unavailabl e Source Comments [facility]non-owned Affiliates and Associated Physician Practices is amultiple site organization consisting of ambulatory clinics and hospital sitesin [place], [place]. This disclosure is being madepursuant to the Care Everywhere program and may not contain all information available regarding this patient. Last updated 18.[facility] Allergies No known active allergies Immunizations Immunization [...]
--- OUTSIDE RECORDS SUMMARY | 2025-03-29 15:24 | XMS_ITS | Clinical Summary ---
Author Organization 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
[2025-03-29] MEDS: SODIUM CHLORIDE 0.9% IV 1,000 ML 999 ML IV CONT (15:48)
[2025-03-29 15:54] LABS: Hematocrit 35.9 % (37.0-47.0); Hemoglobin 11.5 g/dL (12.0-15.0); Immature Granulocyte Percent A 0.3 % (0-0.5); Lymphocytes Absolute Auto 0.86 K/mm3 (0.9-3.2); Mean Corpuscular HGB Conc 32.0 g/dl (32-36); Mean Corpuscular Hemoglobin 23.5 pg (26-34); Mean Corpuscular Volume 73.4 fl (80-100); Nucleated Red Blood Cells Absolute Auto 0.000 K/mm3 (0.0-0.012); Nucleated Red Blood Cells Perc 0.0 % (0.0-0.2); Platelet Count Result 284 k/mm3 (150-375); Red Blood Count 4.89 M/mm3 (4.2-5.4); White Blood Count 9.8 K/mm3 (4.5-10.0)
[2025-03-29 16:09] LABS: Serum Qual hCG Negative
[2025-03-29 16:10] LABS: SPREG INTERNAL CONTROL Positive
[2025-03-29 16:14] LABS: Alanine Aminotransferase 78 U/L (6-35); Albumin Level 3.9 g/dL (3.5-5.1); Alkaline Phosphatase 134 U/L (38-126); Anion Gap 13 mmol/L (4-12); Aspartate Amino Transferase 68 U/L (14-36); Bilirubin,Total 1.8 mg/dL (0.2-1.3); Blood Urea Nitrogen 11 mg/dL (7-17); Calcium 8.7 mg/dL (8.4-10.2); Carbon Dioxide 20 mmol/L (22-30); Chloride 102 mmol/L (98-107); Estimated CRCL calculation 75 ml/min; Estimated Glomerular Filt Rate 57; Glucose 159 mg/dL (65-110); Potassium 3.3 mmol/L (3.4-5.0); Sodium 135 mmol/L (137-145); Total Protein 8.3 g/dL (6.3-8.2)
[2025-03-29 16:18] LABS: Microcytosis 1+ (NORMAL); Ovalocytes 1+; Schistocytes None Seen
[2025-03-29 16:46] VITALS: BP 108/62; PULSE 91; RESP 18; O2SAT 99
--- NOTE | 2025-03-29 17:20 | PC.NURSE ---
Patient urinated in bathroom before RN was able to collect a sample. Patient educated on use of urine cup and to use when she needs to use the restroom again.
== END 2025-03-29 17:54 | disposition home or self-care (01) ==
PROVIDERS: Emergency Provider Registered Nurse Emergency; PCP Physician Assistant
DX: J06.9 Acute upper respiratory infection, unspecified (principal); D64.9 Anemia, unspecified
CPT/HCPCS: 36415; 71046; 80053; 84703; 85025; 96360; 99283; J7030